=== PATIENT | female | born 1970 | race Caucasian/White ===

== ENCOUNTER 2017-07-09 06:09 | Day surgery (SDC) | payer SELFPAY ==
[2017-06-25 17:36] VITALS: BMI 31.2
[2017-07-09] MEDS ORDERED: HEPARIN NA (PORCINE) 5,000 UNITS/ML 1ML VIAL ONE (07:16)
[2017-07-09] MEDS ORDERED: EPINEPHrine/PF 1 MG/1 ML (1:1,000) AMPULE ONE (07:17)
[2017-07-09] MEDS ORDERED: LIDOCAINE HCL 1%, 10 MG/ML (20ML VIAL) ONE (07:17)
[2017-07-09] MEDS ORDERED: SUCCINYLCHOLINE CHLORIDE 200 MG/10 ML VIAL ONE (07:50)
[2017-07-09] MEDS ORDERED: fentaNYL CITRATE 250 MCG/5 ML VIAL ONE (07:50)
[2017-07-09] MEDS ORDERED: ROCURONIUM BROMIDE 50 MG/5 ML VIAL ONE ×2 (07:50→11:44)
[2017-07-09] MEDS ORDERED: PROPOFOL 20 ML ONE ×7 (07:50→11:45)
[2017-07-09] MEDS ORDERED: MIDAZOLAM HCL 2 MG/2 ML SINGLE DOSE VIAL ONE (07:51)
[2017-07-09] MEDS ORDERED: LIDOCAINE HCL/PF 2% SDV 5ML VIAL ONE (07:56)
[2017-07-09] MEDS ORDERED: LIDOCAINE HCL 2% JELLY (5 ML/TUBE) ONE (07:56)
[2017-07-09] MEDS ORDERED: DEXAMETHASONE SOD PHOSPHATE 4 MG/1 ML VIAL ONE (07:56)
[2017-07-09] MEDS ORDERED: KETOROLAC TROMETHAMINE 30 MG/1 ML VIAL ONE (07:56)
[2017-07-09] MEDS ORDERED: ONDANSETRON 4 MG/2 ML VIAL ONE ×2 (07:56→14:58)
[2017-07-09] MEDS ORDERED: ceFAZolin SODIUM 1 GM VIAL ONE ×2 (07:56→12:45)
[2017-07-09] MEDS ORDERED: BACITRACIN 15 GM TUBE TOPICAL OINTMENT ONE (09:47)
[2017-07-09] MEDS ORDERED: DESFLURANE GAS 240 ML BOTTLE IH ONE (11:48)
[2017-07-09] MEDS ORDERED: SEVOFLURANE 250 ML BTL ONE (11:48)
[2017-07-09] MEDS ORDERED: HYDROmorphone HCL/PF 1 MG/ML VIAL (FOR PYXIS CHARGING ONLY) ONE (13:42)
[2017-07-09] MEDS ORDERED: PROMETHAZINE HCL 25 MG/1 ML VIAL IVPUSH PRN (14:49)
[2017-07-09] MEDS ORDERED: oxyCODONE HCL 5 MG TABLET PO PRN ×2 (14:49→15:04)
[2017-07-09] MEDS ORDERED: LACTATED RINGERS SOLUTION 1,000 ML IV SCH ×2 (15:00→15:15)
[2017-07-09] MEDS: ONDANSETRON 4 MG/2 ML VIAL IVPUSH PRN (15:00)
[2017-07-09] MEDS ORDERED: ONDANSETRON 4 MG/2 ML VIAL IVPB PRN (15:04)
[2017-07-09] MEDS ORDERED: morphine CARPU-JECT 10 MG/1 ML DISP.SYRIN IVPUSH PRN (15:04)
--- NOTE | 2017-07-09 15:09 | OP ---
Operative Note - Note: Operative Date: 07/09/17 Pre-Operative Diagnosis: breast and abdominal deformity Operation: bilateral mastopexy and abdominoplasty Findings: above Post-Operative Diagnosis: Same as Pre-op Surgeon: Brijesh Presley Anesthesia: General Estimated Blood Loss (mls): 200 Drains & Tubes with Location: SELINA x 2 Operative Report Dictated: Yes
[2017-07-09] MEDS: CEFAZOLIN 1 GM/D5W 1 GM/50 ML BAG IVPB SCH (21:12)
[2017-07-09] MEDS: oxyCODONE HCL 5 MG TABLET PO PRN (21:13)
[2017-07-09] MEDS ORDERED: HEPARIN NA (PORCINE) 5,000 UNITS/ML 1ML VIAL SQ SCH (22:00)
[2017-07-10] MEDS: ONDANSETRON 4 MG/2 ML VIAL IVPUSH PRN (01:42)
[2017-07-10] MEDS: oxyCODONE HCL 5 MG TABLET PO PRN ×2 (01:52→07:02)
[2017-07-10] MEDS: CEFAZOLIN 1 GM/D5W 1 GM/50 ML BAG IVPB SCH (02:00)
[2017-07-10 06:14] VITALS: BP 107/66; PULSE 68; TEMP 98.1
--- NOTE | 2017-07-10 07:26 | PN ---
Progress Note (short form) - Note Progress Note: healing well VSS AF, OK for discharge once meets criteria
[2017-07-10] MEDS ORDERED: morphine SULFATE 4 MG/ML VIAL IVPUSH PRN (08:24)
--- NOTE | 2017-07-10 10:15 | OP ---
DATE OF OPERATION: 07/09/2017 TITLE OF PROCEDURE: Bilateral mastopexy with abdominoplasty and flank liposuction. PREOPERATIVE DIAGNOSIS: Abdominal and bilateral breast deformity. POSTOPERATIVE DIAGNOSIS: Abdominal and bilateral breast deformity. Patient is seen in holding area, marked in a standing position, awake, aware of all incisions and resulting scars. The patient is given ELOINA compression hose and sequential compression stockings preoperatively, and 5000 units of subcutaneous heparin are given preoperatively. A gram of Ancef is given preoperatively. She is counseled on all risks, benefits, and alternatives to the procedure, understands, and agrees to proceed. She is brought to the operating room, placed in a supine position. She is carefully padded, and position is checked by surgical and anesthesia teams. The patient is hooked up to the sequential compression device machine which is working. After anesthesia is given, the Cochran catheter is placed which was removed at the end of the procedure. She is prepped and draped in standard surgical fashion. A timeout was called. Patient, procedure, side, and site are verified. The attention is first directed toward the right breast where a modified Yousif-type pattern mastopexy is performed, leaving an inferior pedicle which is de-epithelialized. Skin flaps are elevated medially, laterally, and anteriorly. Only skin is excised. No tissue is excised. The skin flaps are undermined medially and laterally. Hemostasis then meticulously achieved and the skin is tailor tacked. A mirror image procedure is performed on the contralateral left side where patient is then brought to a seated upright position, where symmetry of size and shape are deemed to be excellent. Small provision of the superior pole of the areola is performed. A crescentic excision of the areola itself superiorly is performed, and the 12 o'clock skin is undermined to be mobilized inferiorly. Closure is performed with a series of interrupted, buried, deep dermal 4-0 Monocryl suture, followed by a running subcuticular 4-0 Monocryl suture. The closure of the mastopexy incision is performed with half-buried mattress 2-0 nylon suture at the inverted T point. Skin is then carefully closed with a series of interrupted, buried, deep dermal 3-0 Monocryl suture, followed by a running subcuticular 3-0 Monocryl suture, both in the vertical and horizontal limbs. The sterile dressings are applied, and a sterile towel is placed over the breasts. Attention is then directed toward the abdomen. At the abdomen, the infrapannicular markings are incised. The dissection is carried down to the level of the abdominal wall fascia. Dissection is then carried along the abdominal wall fascia toward the level of the umbilicus. The umbilicus is circumcised and developed on a fibrofatty stalk attached to the abdominal wall fascia. Dissection is then carried along the abdominal wall fascia, ligating any perforating blood vessels as encountered to the level of the xiphoid process and the midline costal margins bilaterally. At this point, the subscarpal fat is trimmed. Hemostasis is meticulously achieved. The wound is copiously irrigated with normal saline. A midline plication is performed first with a series of interrupted, buried, [id number] 1 Prolene sutures both above and below the umbilicus, leaving a wide for the umbilicus itself. The second layer of the midline plication is performed with a running, locking 1 Prolene suture, again both above the below the umbilicus. The endpoint is smooth, even tension and contour to the abdominal wall. Hemostasis was once again achieved. Patient is brought to a 30-degree upright seated position where the abdominoplasty flap is transposed. The excess skin and fat is removed with the flap tailor tacked in position with jessica. The position of the umbilicus is marked. A Star Trek pattern translocation defect is cut in the abdominoplasty flap. The umbilicus is then converted to a Star Trek pattern with an inferior 6 o'clock wedge removed. The umbilicus is translocated, inset with the 6 o'clock flap of the abdominoplasty defect inset into the 6 o'clock wedge of the umbilicus. The inset is performed with a series of interrupted, buried, deep dermal 3-0 Monocryl suture, followed by a running 4-0 nylon suture. Size 10 flat SELINA drains are brought out through the lateral extents of the incisions. They are secured with 2-0 silk drain suture. The right drain is along the superior recess of the wound. The left drain is along the inferior recess of the wound. The flanks are then infiltrated with a wetting solution. Wetting solution is 1 L of normal saline with 20 mL of 1% lidocaine plain and 1 ampule of 1:1000 epinephrine. While this is working, closure is performed of the abdominoplasty incision with a series of interrupted, buried 2-0 Vicryl, superficial fascial system sutures, followed by a series of interrupted, buried, deep dermal 3-0 Monocryl suture, followed by a running 3-0 PDS V-Loc mid-dermal suture, followed by several interrupted 4-0 nylon suture. Prior to the final closure, liposuction performed with a 4-mm cannula and a power-assisted system; 250 mL of fat are aspirated from either flank. Endpoint is a smooth, even contour. All tissues appear pink and viable at the end of the procedure. Closure is completed. Dressings are applied with 1/2-inch Steri-Strips, 4 x 4 gauze, ABD gauze, abdominal binder, and a surgical bra. Patient awoken from anesthesia. She is transferred to her hospital bed in a flexed position, having tolerated the procedure well. Jameel [id number]
--- NOTE | 2017-07-11 16:11 | PATH ---
Surgical Pathology Report Patient Name: ANTONI MILAN [facility]. Rec. #: [id number] /Age/Gender: 1970 (Age: 46) / F Account: [id number] Location: [facility] AMBULATORY Taken: 07/09/2017 Received: 07/09/2017 Reported: 07/11/2017 Physicians: Brijesh Presley Specimen(s) Received A: RIGHT BREAST TISSUE B: LEFT BREAST TISSUE Clinical History Cosmetic Final Diagnosis A. BREAST TISSUE, RIGHT, EXCISION: SKIN AND FIBROADIPOSE TISSUE WITH NO PATHOLOGIC FINDINGS. B. BREAST TISSUE, LEFT, EXCISION: SKIN AND FIBROADIPOSE TISSUE WITH NO PATHOLOGIC FINDINGS. Electronically Signed Sofia Kimball M.D. Gross Description A. Received in formalin labeled "right breast tissue," is a 13.0 x 6.0 x 0.6 cm aggregate of multiple lopez skin fragments with minimal underlying soft tissue. No epidermal lesions are identified. Sectioning reveals unremarkable yellow, lobulated adipose tissue. No lesions are identified. [facility] sections are submitted in one cassette. B. Received in formalin labeled "left breast tissue," is a 13.5 x 4.5 x 0.6 cm aggregate of multiple lopez skin fragments with minimal underlying soft tissue. No epidermal lesions are identified. Sectioning reveals unremarkable yellow, lobulated adipose tissue. No lesions are identified. [facility] sections are submitted in one cassette. 07/10/201707/10/2017
== END 2017-07-10 10:09 | disposition home or self-care (01) ==
LOC: FASU 06:09 → FM/S 15:04 → FASU 07-10 10:09
PROVIDERS: ATTEND Plastic Surgery
PROC: 0H0V0ZZ Alteration of Bilateral Breast, Open Approach (ICD-10-PCS; principal; 2017-07-09 08:56)
PROC: 0J080ZZ Alteration of Abdomen Subcutaneous Tissue and Fascia, Open Approach (ICD-10-PCS; 2017-07-09 08:56)
PROC: 0J083ZZ Alteration of Abdomen Subcutaneous Tissue and Fascia, Percutaneous Approach (ICD-10-PCS; 2017-07-09 08:56)
DX: Z41.1 Encounter for cosmetic surgery (principal); N64.89 Other specified disorders of breast; M95.8 Other specified acquired deformities of musculoskeletal system
CPT/HCPCS: 84703; 88304-TC; 94760; J1644